=== PATIENT | female | born 1990 | race Caucasian/White ===

== ENCOUNTER → 2020-12-09 | Outpatient (CLI) | payer OTHER ==
--- NOTE | 2020-12-09 09:37 | ECGEPIP ---
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
== END ==
LOC: M EKG 08:43
PROVIDERS: ATTEND Obstetrics & Gynecology
DX: O24.012 Pre-existing type 1 diabetes mellitus, in pregnancy, second trimester (principal); Z3A.20 20 weeks gestation of pregnancy; Z79.4 Long term (current) use of insulin

== ENCOUNTER → 2021-02-28 | Outpatient (CLI) | payer OTHER ==
[2021-02-28 15:16] LABS: HEMOGLOBIN 11.9 g/dl (12.0-15.5); MEAN CORPUSCULAR HEMOGLOBIN 28.3 pg (27.0-33.0); MEAN CORPUSCULAR HGB CONC 33.1 g/dl (32.0-36.5); MEAN CORPUSCULAR VOLUME 85.7 fl (80.0-96.0); PLATELET COUNT, AUTOMATED 154 10^3/uL (150-450); WHITE BLOOD COUNT 7.5 10^3/uL (4.0-10.0)
[2021-02-28 15:17] LABS: APPEARANCE, URINE CLEAR (CLEAR); BACTERIA, URINE AUTO 1+ (NEGATIVE); BILIRUBIN, URINE AUTO NEGATIVE (NEGATIVE); BLOOD, URINE BLOOD NEGATIVE (NEGATIVE); COLOR, URINE YELLOW (YELLOW); GLUCOSE, URINE (UA) AUTO NEGATIVE (NEGATIVE); KETONE, URINE AUTO NEGATIVE (NEGATIVE); LEUKOCYTE ESTERASE, URINE AUTO NEGATIVE (NEGATIVE); MUCUS, URINE SMALL (NEGATIVE); NITRITE, URINE AUTO NEGATIVE (NEGATIVE); PROTEIN, URINE AUTO 1+ mg/dL (NEGATIVE); RBC, URINE AUTO 3 /HPF (0-3); SPECIFIC GRAVITY URINE AUTO 1.004 (1.002-1.035); SQUAMOUS EPITHELIAL CELL UR AU 1 /HPF (0-6); UROBILINOGEN, URINE AUTO 0.2 mg/dL (0.0-2.0); WBC, URINE AUTO 0 /HPF (0-3)
[2021-02-28 15:42] LABS: CREATININE,RANDOM URINE 27.5 MG/DL; TOTAL PROTEIN,RANDOM URINE 27.9 MG/DL (0.0-12.0)
[2021-02-28 15:47] LABS: ALBUMIN 2.5 GM/DL (3.2-5.2); ALT/SGPT 44 U/L (12-78); BILIRUBIN,TOTAL 0.5 MG/DL (0.2-1.0); BLOOD UREA NITROGEN 10 MG/DL (7-18); CALCIUM LEVEL 8.9 MG/DL (8.5-10.1); CARBON DIOXIDE LEVEL 25 MEQ/L (21-32); CHLORIDE LEVEL 103 MEQ/L (98-107); CREATININE FOR GFR 0.76 MG/DL (0.55-1.30); GLOMERULAR FILTRATION RATE > 60.0 (>60); GLUCOSE, FASTING 82 MG/DL (70-100); SODIUM LEVEL 136 MEQ/L (136-145); TOTAL PROTEIN 6.7 GM/DL (6.4-8.2)
== END ==
LOC: EDBD 14:19 → M LAB 14:19
PROVIDERS: ATTEND Obstetrics & Gynecology
DX: O13.3 Gestational [pregnancy-induced] hypertension without significant proteinuria, third trimester (principal)

== ENCOUNTER → 2021-03-02 | Outpatient (REF) | payer OTHER ==
[~2021-03-02] MED LIST: ACET-907 PO; INSULIN PUMP; PREN200C PO
[2021-03-02 12:59] LABS: URINE TOTAL PROTEIN 46.5 MG/DL (0-12)
== END ==
LOC: M LAB REF 10:45
PROVIDERS: ATTEND Obstetrics & Gynecology
DX: O13.3 Gestational [pregnancy-induced] hypertension without significant proteinuria, third trimester (principal)

== ENCOUNTER 2021-03-03 16:07 | Outpatient (CLI) | payer OTHER ==
[~2021-03-03] VITALS: Ht 175.3 cm; Wt 93.9 kg
[~2021-03-03 16:07] MED LIST changes: -ACET-907 PO
[2021-03-03] MEDS ORDERED: ACET-907 PO (16:30)
--- NOTE | 2021-03-03 16:31 | IPNPDOC ---
Obstetrical Progress Note Date of Service Mar 03, 2021 Subjective Ms. Villegas is a 30yo at 35+3 presenting from the clinic for elevated trend in BP in the setting of currently diagnosed pre-eclampsia without severe features. Notably her is also c/b DM1, PTD, and history of CD with CD planned at 36wk given her history of PTD with Dr. Humphries. She is normally in systolic 140s but now is in systolic 150s today so she was sent for extended BP monitoring and pre-eclampsia labs. At this time she denied n/v/d, cp, sob, calderon, visual changes, abd pain, f/c, vaginal bleeding, dc, urinary sx. She denied VB, LOF, decreased FM, or painful contractions. Assessment Variability: Moderate Accelerations: Positive Heart Rate Tracing: Category I Tocometer Contractions: Yes Frequency: irregular Assessment and Plan Additional Comments Ms. Villegas is a 30yo at 35+3 presenting from the clinic for elevated trend in BP in the setting of currently diagnosed pre-eclampsia without severe features. Notably her is also c/b DM1, PTD, and history of CD with CD planned at 36wk given her history of PTD with Dr. Humphries. She is normally in systolic 140s but was is in systolic 150s today in clinic so she was sent for extended BP monitoring and pre-eclampsia labs. In triage she has been normotensive to mild range. She denied si/sx of pre- eclampsia at this time. CAT I NST. Will continue with serial NSTs/labs per plan with Dr. Humphries. Started BMTZ administration today for her anticipated delivery date. Educated on return precautions for si/sx of pre-eclampsia. Educated on routine OB return precautions. Physical Examination General Exam: Positive: Alert Chest Exam: Positive: Clear to auscultation Heart Exam: Positive: Rate Normal, Normal S1 Abdomen Exam: Positive: Normal bowel sounds, Soft Skin Exam: Positive: Nl turgor and temperature Neuro Exam: Positive: Reflexes 2+ Psych Exam: Positive: Mental status NL JON NIELSON DO Mar 03, 2021 16:31
[2021-03-03 16:38] VITALS: BP 123/75
[2021-03-03 16:52] VITALS: BP 122/74
[2021-03-03] MEDS ORDERED: BETAMETHASONE SOLUSPAN 6MG/ML 5ML VIAL (J0702 PER 3MG) IM SCH (17:00)
[2021-03-03 17:09] LABS: HEMATOCRIT 33.9 % (36.0-47.0); HEMOGLOBIN 11.4 g/dl (12.0-15.5); MEAN CORPUSCULAR HEMOGLOBIN 28.6 pg (27.0-33.0); MEAN CORPUSCULAR HGB CONC 33.6 g/dl (32.0-36.5); MEAN CORPUSCULAR VOLUME 85.2 fl (80.0-96.0); PLATELET COUNT, AUTOMATED 153 10^3/uL (150-450); RED BLOOD COUNT 3.98 10^6/uL (4.00-5.40); WHITE BLOOD COUNT 7.2 10^3/uL (4.0-10.0)
[2021-03-03 17:31] LABS: ALT/SGPT 49 U/L (12-78); BILIRUBIN,TOTAL 0.4 MG/DL (0.2-1.0); CREATININE FOR GFR 0.74 MG/DL (0.55-1.30); GLOMERULAR FILTRATION RATE > 60.0 (>60); LDH LACTATE DEHYDROGENASE 180 U/L (84-246)
[2021-03-03 17:41] VITALS: BP 144/73
[2021-03-04] MEDS ORDERED: ASPI81CH33 PO (17:30)
[2021-03-04] MEDS ORDERED: NOVOINJ SC (17:30)
== END 2021-03-03 17:50 | disposition home or self-care (01) ==
LOC: M LDO 16:07
PROVIDERS: ATTEND Registered Nurse
DX: O14.03 Mild to moderate pre-eclampsia, third trimester (principal); Z3A.35 35 weeks gestation of pregnancy; O24.013 Pre-existing type 1 diabetes mellitus, in pregnancy, third trimester; O34.211 Maternal care for low transverse scar from previous cesarean delivery; Z87.51 Personal history of pre-term labor
CPT/HCPCS: 36415; 59025; 82247; 82565; 83615; 84450; 84460; 84550; 85027; 96372; G0378; G0463; J0702

== ENCOUNTER 2021-03-04 17:19 | Observation (INO) | payer OTHER ==
[~2021-03-04 17:19] MED LIST changes: +ACET-907 PO
[2021-03-04] MEDS ORDERED: ASPI81CH33 PO (17:30)
[2021-03-04] MEDS ORDERED: NOVOINJ SC (17:30)
[2021-03-04 17:32] VITALS: BP 145/72
[2021-03-04] MEDS ORDERED: BETAMETHASONE SOLUSPAN 6MG/ML 5ML VIAL (J0702 PER 3MG) IM ONE (18:05)
[2021-03-04 18:11] VITALS: BP 136/75
[2021-03-04 18:57] VITALS: BP 135/74
[2021-03-04 19:13] LABS: ALT/SGPT 68 U/L (12-78); BILIRUBIN,TOTAL 0.3 MG/DL (0.2-1.0); CREATININE FOR GFR 0.89 MG/DL (0.55-1.30); GLOMERULAR FILTRATION RATE > 60.0 (>60); LDH LACTATE DEHYDROGENASE 202 U/L (84-246); URIC ACID 4.9 MG/DL (2.6-6.0)
[2021-03-04 19:22] LABS: CREATININE,RANDOM URINE 50.3 MG/DL
--- NOTE | 2021-03-04 19:37 | IPNPDOC ---
Text Note Date of Service The patient was seen on 03/04/21. NOTE Item Value Date Time Urine Random Creatinine 50.3 MG/DL 03/04/211808 Urine Random Total Protein 51.0 MG/DL H 03/04/211808 Item Value Date Time Creatinine 0.89 MG/DL 03/04/211824 Glomerular Filtration Rate > 60.0 03/04/211824 Uric Acid 4.9 MG/DL 03/04/211824 Total Bilirubin 0.3 MG/DL 03/04/21 182 Aspartate Amino Transf (AST/SGOT) 56 U/L H 03/04/21 182 Alanine Aminotransferase (ALT/SGPT) 68 U/L 03/04/21 182 Lactate Dehydrogenase 202 U/L 03/04/21 182 Vital Signs Label Value Date Time Pulse 75 03/04/21 1857 Respiratory Rate 17 bpm 03/04/21 185 Blood Pressure Assessment 135/74 (94) 03/04/21 1857 Source Automatic Cuff (NIBP) Pulse 71 03/04/21 1811 Blood Pressure Assessment 136/75 (95) 03/04/21 1811 Source Automatic Cuff (NIBP) Pulse 76 03/04/21 1732 Blood Pressure Assessment 145/72 (96) 03/04/21 1732 Source Automatic Cuff (NIBP) PATIENT CAME FOR SECOND BETA SHE HAD MID RANGE BLOOD PRESSURES AND CONTRACTIONS SO PATIENT WAS ADMINISTERED FIRST DOSE BETA TODAY WITH SECOND DOSE PATIENT STILL HAD MID RANGE BLOOD PRESSURES NO HEADACHE NO VISUAL NO RUQ NO EDEMA REFLEXES NORMAL . NST REACTIVE . PLAN WAS TO DO PRE E PROFILE IF NORMAL CONTINUE WITH PLAN MONITORING 48 HOURS AND KEEP SCHEDULE FOR REPEAT CS . PATIENT EXPRESSED UNDERSTANDING OF PLAN. REVIEWED P/C RATIO IT IS .98 WHICH SUGGEST THAT PATIENT IS TRENDING TO PRE E . PLAN NOW IS MONITOR X 12 HOURS BY THAT TIME PATIENT WILL BE STEROID COMPLETE . THEN OPTION OF REPEAT C/S MAY BE CONSIDERED. PATIENT EXPRESSED UNDERSTANDING 20 MINUTE DISCUSSION VS,Juanbone, I+O VS, Fishbone, I+O Vital Signs Date Time Temp Pulse Resp B/P (MAP) Pulse Ox O2 Delivery O2 Flow Rate FiO2 03/04/21 18:57 75 17 135/74 (94) Yoshi Casey MD Mar 04, 2021 19:17
[2021-03-04 22:48] VITALS: BP 113/56
[2021-03-05 02:54] VITALS: BP 116/57
[2021-03-05 06:10] LABS: HEMATOCRIT 32.4 % (36.0-47.0); HEMOGLOBIN 10.7 g/dl (12.0-15.5); MEAN CORPUSCULAR HEMOGLOBIN 28.4 pg (27.0-33.0); MEAN CORPUSCULAR VOLUME 85.9 fl (80.0-96.0); PLATELET COUNT, AUTOMATED 147 10^3/uL (150-450); RED BLOOD COUNT 3.77 10^6/uL (4.00-5.40); WHITE BLOOD COUNT 9.9 10^3/uL (4.0-10.0)
[2021-03-05 06:24] VITALS: BP 141/68
--- NOTE | 2021-03-05 08:25 | IPNPDOC ---
Text Note Date of Service The patient was seen on 03/05/21. NOTE Vital Signs Label Value Date Time Patient Temperature 97.1 degrees F 03/05/21 0627 Temperature Source Temporal 03/05/21 0627 Blood Pressure Assessment 141/68 (92) 03/05/21 0624 Source Automatic Cuff (NIBP) Patient Temperature 97.2 degrees F 03/05/21 0255 Temperature Source Temporal 03/05/21 0255 Blood Pressure Assessment 116/57 (76) 03/05/21 0254 Source Automatic Cuff (NIBP) Patient Temperature 97.4 degrees F 03/04/21 2255 Temperature Source Temporal 03/04/21 2255 Blood Pressure Assessment 113/56 (75) 03/04/21 2248 Source Automatic Cuff (NIBP) Blood Pressure Assessment 135/74 (94) 03/04/21 1857 Source Automatic Cuff (NIBP) Blood Pressure Assessment 136/75 (95) 03/04/21 1811 Source Automatic Cuff (NIBP) Blood Pressure Assessment 145/72 (96) 03/04/21 1732 Source Automatic Cuff (NIBP) patient admitted for observation after second beta dose found to have mid range blood pressures. similar blood pressures that initiated first cs wth severe pre e and cs at 36 weeks second cs with similar history with pre e . did pre e profile p/c ratio .98 rest was negative . monitored blood pressure over night wer normal decision re earlier cs or monitor and keep cs date 06/11/2021 VS,Fishbone, I+O VS, Fishbone, I+O Laboratory Tests 03/04/21 18:25 03/05/21 05:38 Vital Signs Date Time Temp Pulse Resp B/P (MAP) Pulse Ox O2 Delivery O2 Flow Rate FiO2 03/05/21 06:27 97.1 17 03/05/21 06:24 60 141/68 (92) Yoshi Casey MD Mar 05, 2021 08:23
[2021-03-05 08:54] VITALS: BP 157/76
[2021-03-05 09:32] VITALS: BP 145/72
--- NOTE | 2021-03-05 10:31 | IPNPDOC ---
Text Note Date of Service The patient was seen on 03/05/21. NOTE Ms. Villegas is a 31 yo at 35+5 weeks gestation today who was admitted for observation overnight after her 2nd dose of BTMZ for elevated blood pressure. She is Type 1 DM on an insulin pump. She has known pre eclampsia this , diagnosed earlier this week with a 24 hour urine protein level of >1000mg. Her first two pregnancies resulted in delivery at ~36 weeks for pre eclampsia with severe features. Because of this, she completed her BTMZ course yesterday evening. Ms. Villegas reports feeling well today and has no complaints. She denies any headaches, RUQ pain, visual changes, or SOB. She also denies any bleeding, leakage of fluid, or contractions. She endorses movement. Vitals - BP normal to mildly elevated. No severe range pressures. Afebrile, non tachycardic General - AAOX3, sitting up in bed, pleasant and conversant, NAD Abdomen - Gravid uterus, no fundal tenderness Extremities - Mild edema FHR tracing this AM - Cat I with moderate variability, +accels, no decels. Sporadic uterine irritability on toco. Labs: Plts - 147 Cr - 0.89 AST/ALT - 56/68 Ms. Villegas is stable at this time. She is scheduled for RLTCS on 11Mar2021 at 36+4 weeks gestation. However, it may be necessary to proceed with delivery sooner. She currently does not meet criteria for pre eclampsia with severe features, however, her labs are trending in that direction. Plan will be for her to return to L&D tomorrow AM (06Mar2021) for repeat CBC, CMP, NST, and blood pressure monitoring. She is currently BTMZ complete. If she has severely elevated BP tomorrow, worsening lab work, symptoms of pre e, or a non reassuring status, then we will proceed with RLTCS tomorrow. Tri feels comfortable with this plan. She will not eat after midnight tonight. She lives <5 minutes away from the hospital. She understands to return to care sooner than tomorrow AM if she develops headaches, RUQ pain, visual changes, SOB, or any other concerns. All patient questions answered. 30 minutes of patient care Rashel Rose, I+O VS, Fishbone, I+O Laboratory Tests 03/04/21 18:25 03/05/21 05:38 Vital Signs Date Time Temp Pulse Resp B/P (MAP) Pulse Ox O2 Delivery O2 Flow Rate FiO2 03/05/21 09:32 65 145/72 (96) 03/05/21 08:54 97.4 18 100 Room Air KEE SHEPPARD DO Mar 05, 2021 10:31
== END 2021-03-05 10:40 | disposition home or self-care (01) ==
LOC: M LDO 17:19 → M LDI 19:37
PROVIDERS: ADMIT Obstetrics & Gynecology; ATTEND Obstetrics & Gynecology
DX: O14.03 Mild to moderate pre-eclampsia, third trimester (principal); O34.211 Maternal care for low transverse scar from previous cesarean delivery; O24.013 Pre-existing type 1 diabetes mellitus, in pregnancy, third trimester; Z3A.35 35 weeks gestation of pregnancy; Z87.59 Personal history of other complications of pregnancy, childbirth and the puerperium
CPT/HCPCS: 36415; 59025; 82247; 82565; 82570; 83615; 84156; 84450; 84460; 84550; 85027; 96372; J0702

== ENCOUNTER 2021-03-06 09:19 | Inpatient (IN) | payer OTHER ==
[~2021-03-06] VITALS: Ht 175.3 cm; Wt 95.3 kg
[2021-03-06] VITALS (34 sets, daily range): BP systolic 97–193; BP diastolic 49–97
[~2021-03-06 09:19] MED LIST changes: +ASPI81CH33 PO; +NOVOINJ SC
[2021-03-06 10:14] LABS: MEAN CORPUSCULAR HEMOGLOBIN 28.4 pg (27.0-33.0); MEAN CORPUSCULAR HGB CONC 33.3 g/dl (32.0-36.5); MEAN CORPUSCULAR VOLUME 85.2 fl (80.0-96.0); PLATELET COUNT, AUTOMATED 135 10^3/uL (150-450); RED BLOOD COUNT 3.52 10^6/uL (4.00-5.40); WHITE BLOOD COUNT 9.6 10^3/uL (4.0-10.0)
[2021-03-06] MEDS ORDERED: OXYTOCIN DRIP 30 UNITS in IV 1 EA IV PRN (10:35)
[2021-03-06] MEDS ORDERED: LR 1,000 ML IV SCH ×2 (10:35→14:00)
[2021-03-06] MEDS ORDERED: AZITHROMYCIN INJ 500 MG, VIAL MATE ADAPTER 1 EACH in NS 250 ML IV ONE (11:00)
[2021-03-06] MEDS ORDERED: BICITRA 30ML SOLN UDC PO ONE (11:00)
[2021-03-06] MEDS ORDERED: ceFAZolin SOD 2 GM in IV 1 EA IV ONE (11:00)
[2021-03-06] MEDS ORDERED: MORPHINE PRES-FREE INJ 10 MG/10 ML VIAL (J2274) As Ordered ONE (11:02)
[2021-03-06] MEDS ORDERED: OXYTOCIN INJ 10 UNITS/ML VIAL (J2590) As Ordered ONE (11:03)
[2021-03-06] MEDS ORDERED: ONDANSETRON 4MG/2ML VIAL As Ordered ONE (11:03)
[2021-03-06] MEDS ORDERED: KETOROLAC 60MG 2ML VIAL As Ordered ONE (11:03)
[2021-03-06] MEDS ORDERED: dexameTHASONE 4 MG/ML 1ML VIAL (J1100 PER 1MG) As Ordered ONE (11:03)
[2021-03-06] MEDS ORDERED: PHENYLephrine 500MCG 5ML (100MCG/ML) SYRINGE As Ordered ONE (11:03)
[2021-03-06] MEDS ORDERED: ePHEDrine SULFATE 25 MG/5 ML(5MG/ML) SYRINGE As Ordered ONE (11:03)
[2021-03-06] MEDS ORDERED: OXYTOCIN 30 UNITS IN 0.9% NaCl 500ML IV BAG (J2590) As Ordered ONE ×2 (11:04→13:27)
--- NOTE | 2021-03-06 11:05 | HPEPDOC ---
Obstetrical History & Physical General Date of Admission Mar 06, 2021 at 10:37 History of Present Illness 31 yo at 35+6 weeks gestation by LMP of 28Jun2020 c/w 12+1 week US presented to L&D for blood work, NST, and blood pressure monitoring. Tri has known pre eclampsia and type 1 DM controlled with an insulin pump. She was originally scheduled for RLTCS on 11Mar2021 but her labs have been trending in the wrong direction and her BP has been increasing. She delivered her first two children at 36 weeks secondary to severe pre eclampsia. Today Tri reports feeling well. She denies any headaches, RUQ pain, visual changes, or SOB. She also denies any contractions, vaginal bleeding, or leakage of fluid. She endorses movement. 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 Past Medical History Medical History Type 1 DM --> controlled with insulin pump Vit D deficiency Surgical History: section ( section X2) Family History Significant Family History: No pertinent family hx Social History Marital Status: Family situation: Spouse/partner home Psychosocial History: No pertinent psych hx * Smoker: non-smoker Alcohol: Denies Drugs: denies Imunizations Tdap status: current Influenza Status: needs Allergies Coded Allergies: No Known Allergies (Unverified , 03/03/21) Medications Scheduled Aspirin (Aspirin) 81 Mg Tab.chew, 1 TAB PO DAILY for pain Docosahexanoic Acid ( Dha) 200 Mg Capsule, 200 MG PO DAILY [Insulin Pump] , DAILY Miscellaneous Medications Insulin Aspart (Novolog) 100 Unit/1 Ml Cartridge, 1 UNITS SC Physical Examination Physical Examination GENERAL: AAOX3, pleasant and conversant ABDOMEN: Gravid and non-tender to touch. FETUS: Is vertex (VTX) by Kenneth's EXTREMITIES: 2+ pitting edema in lower extremities Vital Signs/I&O Vital Signs Date Time Temp Pulse Resp B/P (MAP) Pulse Ox O2 Delivery O2 Flow Rate FiO2 03/06/21 10:32 59 16 135/68 (90) 03/06/21 09:30 98.1 98 Room Air Laboratory Data 24H LABS Laboratory Tests 2 03/06/21 09:58: Nucleated Red Blood Cells % (auto) 0.0 CBC/BMP Laboratory Tests 03/06/21 09:58 Urine Culture: No Growth Pertinent Laboratoy Data Blood Type: AB+ RBC Antibody Screen: Negative HIV: Negative Hepatitis B: Negative Hepatitis C: Unknown Rapid Plasma Reagin: Nonreactive Rubella: Immune Varicella: Immune Chlamydia/Gonorrhea: Negative Group B Streptococcus: Negative Quad Screen Test: Unknown Cystic Fibrosis: Negative Glucose Tolerance Test: 0 (Not done. Known insulin dependent diabetic) Anatomy Ultrasound Ultrasound Date: Dec 01, 2020 Placenta Location: Anterior Normal Anatomy: Yes Placenta Previa: No Other Ultrasounds growth scan on 22Feb2021 ---> EFW 85th percentile, AC 94th percentile, CELIO 20.55 Steroid Therapy Steroid Therapy: Yes Date #1: Mar 03, 2021 (Pre eclampsia) Date #2: Mar 04, 2021 (Pre eclampsia) Reason Pre eclampsia. Anticipation of early delivery. Assessment Heart Rate (FHR): 130 Variability: Moderate Accelerations: Positive Decelerations: None Tocometer Contractions: Yes Frequency: irregular Assessment/Plan Assessment 31 yo at 35+6 weeks presents to L&D today for monitoring and was noted to have pre eclampsia with severe features. Plan Tri is now meeting criteria for pre eclampsia with severe features based on severely elevated blood pressures. She is BTMZ complete as of 04Mar2021. She strongly desires RLTCS with BTL for this delivery. She and her are 100% committed to sterilization. We discussed all risks of RLTCS with BTL and Tri desires to proceed. All questions answered. Proceed to OR when team assembled. KEE Mike DO Mar 06, 2021 11:05
[2021-03-06] MEDS ORDERED: diphenhydrAMINE 50MG/ML VIAL (J1200) IV PRN (11:43)
[2021-03-06] MEDS ORDERED: METOCLOPRAMIDE INJ 10MG/2ML VIAL (J2765 PER 1) IV PRN (11:43)
[2021-03-06] MEDS ORDERED: NALBUPHINE HCL 10 MG/ML AMP (J2300) IV PRN ×2 (11:43→14:00)
[2021-03-06] MEDS ORDERED: ONDANSETRON 4MG/2ML VIAL IV PRN ×3 (11:43→14:00)
[2021-03-06] MEDS ORDERED: NALOXONE INJ 0.4MG/1ML VIAL (J2310 PER 1MG) IV PRN ×2 (11:43)
[2021-03-06 12:35] LABS: CORD GAS ABE V 0.4; CORD GAS HCO3 V 25.2 MEQ/L; CORD GAS O2 SAT V 76.6 %; CORD GAS PCO2 V 41.3 mmHg; CORD GAS PH V 7.403 UNITS; CORD GAS PO2 V 31.7 mmHg; CORD GAS SBC V 24.2 MEQ/L; CORD GAS TCO2 V 26.4 MEQ/L
[2021-03-06 12:36] LABS: CORD GAS ABE A -1.1; CORD GAS HCO3 A 26.4 MEQ/L; CORD GAS O2 SAT A 36.1 %; CORD GAS PCO2 A 54.5 mmHg; CORD GAS PH A 7.303 UNITS; CORD GAS PO2 A 17.8 mmHg; CORD GAS SBC A 21.8 MEQ/L; CORD GAS TCO2 A 28.1 MEQ/L
[2021-03-06] MEDS ORDERED: MAG Sulf (L&D) 4 GM/100 ML 4 GM in IV 1 EA IV ONE (13:15)
[2021-03-06] MEDS ORDERED: MEASLES,MUMPS,RUBELLA VACCINE INJ (MMR-II) (90707) SC SCH (13:20)
[2021-03-06] MEDS ORDERED: SIMETHICONE 80MG CHEW TAB PO PRN (13:20)
[2021-03-06] MEDS ORDERED: oxyCODONE 5MG TAB PO PRN (13:20)
[2021-03-06] MEDS ORDERED: RHOGAM 300 MCG (1500 IU) INJ (J2790) IM SCH (13:20)
[2021-03-06] MEDS ORDERED: OXYTOCIN DRIP 30 UNITS in IV 1 EA IV SCH (13:20)
[2021-03-06 13:29] LABS: ALBUMIN 2.2 GM/DL (3.2-5.2); ALT/SGPT 112 U/L (12-78); BILIRUBIN,TOTAL 0.5 MG/DL (0.2-1.0); BLOOD UREA NITROGEN 12 MG/DL (7-18); CALCIUM LEVEL 8.4 MG/DL (8.5-10.1); CARBON DIOXIDE LEVEL 24 MEQ/L (21-32); CHLORIDE LEVEL 109 MEQ/L (98-107); GLOMERULAR FILTRATION RATE > 60.0 (>60); GLUCOSE, FASTING 88 MG/DL (70-100); LDH LACTATE DEHYDROGENASE 203 U/L (84-246); POTASSIUM SERUM 4.1 MEQ/L (3.5-5.1); SODIUM LEVEL 139 MEQ/L (136-145); TOTAL PROTEIN 5.9 GM/DL (6.4-8.2)
[2021-03-06] MEDS ORDERED: HumaLOG INSULIN (NovoLOG) PER UNIT SC ONE (14:00)
[2021-03-06] MEDS ORDERED: fentaNYL 100 MCG/2 ML INJECTION (J3010) IV PRN (14:00)
[2021-03-06] MEDS ORDERED: ENTER DRUG NAME HERE (PATIENT'S OWN MED) IV SCH (14:10)
[2021-03-06] MEDS: MAG Sulf (OBGYN) 20GM/500ML 20,000 MG in IV 1 EA IV SCH (15:17)
--- NOTE | 2021-03-06 15:17 | RO ---
OPERATIVE NOTE DATE OF OPERATION: 03/06/2021 PREOPERATIVE DIAGNOSIS: 1. Preeclampsia with severe features. 2. History of section x2. 3. Type 1 diabetes mellitus. 4. Satisfied parity. POSTOPERATIVE DIAGNOSIS: 1. Preeclampsia with severe features. 2. History of section x2. 3. Type 1 diabetes mellitus. 4. Satisfied parity. PROCEDURE: Repeat low transverse section and bilateral tubal ligation. SURGEON: Jesus Humphries DO EXHIBIT TECHNICIAN: Candida Brady MD ANESTHESIA: Spinal. IV FLUIDS: 1600 mL LR. URINE OUTPUT: 200 mL via Metz catheter. ESTIMATED BLOOD LOSS: 600 mL ANTIBIOTICS: 2 gm of Ancef and 500 mg of azithromycin. OPERATIVE FINDINGS: A viable, female delivered in cephalic presentation. Meconium stained amniotic fluid. Normal ovaries, normal fallopian tubes bilaterally. Normal appearing placenta. weight was 3440 gm or 7 lb, 9 oz. Apgars were 9 and 9. COMPLICATIONS: None. INDICATIONS FOR PROCEDURE: Ms. Tri Villegas is a 32-year-old, G3, P0-2-0-2, who presented at 35 and 6 weeks gestation with known preeclampsia. She presented for blood pressure monitoring and repeat blood work. She was noted to have severely elevated blood pressures and twice the upper limit of normal liver enzymes. She thus ruled in for preeclampsia with severe features. She was steroid complete as of March 04, 2021. She was recommended for delivery. She strongly desired tubal sterilization at the time of repeat . She was then taken to the operating room. DETAILED PROCEDURE DESCRIPTION: The risks, benefits, indications, and alternatives of the procedure were reviewed with the patient and informed consent was obtained. The patient was taken to the operating room where spinal anesthesia was obtained and found to be adequate. She was then prepped and draped in the usual sterile fashion in the dorsal supine position with a leftward tilt. A Pfannenstiel skin incision was then made with a scalpel and carried through to the underlying layer of fascia. The fascia was incised in the midline and the incision was extended laterally with Nathan scissors. The superior aspect of the fascial incision was grasped with Garland clamps, elevated, and the underlying rectus muscles were dissected off bluntly and with a scalpel. Attention was then turned to the inferior aspect of this incision which in a similar fashion was grasped, tented up with Garland clamps, and the rectus muscles were dissected off via blunt dissection and with Nathan scissors. There was significant scarring and adhesions in this area that added 15 minutes of operating time. The rectus muscles were then at the midline. The peritoneum was identified, tented up, and entered digitally. The peritoneal incision was then extended horizontally and superiorly with good visualization of the bladder. A Mobius self-containing retractor was then introduced into the abdomen as a means for exposure. The vesicouterine peritoneum was identified and it was nicked with the scalpel. A bladder flap was then created digitally. Next, the lower uterine segment was incised in a transverse fashion with the scalpel. The amniotic sac was artificially ruptured productive of meconium stained fluid. The uterine incision was then extended manually in a superolateral fashion. The infant was found to be in cephalic presentation. The baby was then delivered without difficulty through the hysterotomy. The cord was then doubly clamped and cut. The was handed off to the awaiting pediatricians. Cord blood gases were drawn. The placenta was then removed spontaneously with gentle traction on the umbilical cord. The uterus was then cleared of all clots and debris. The uterine incision was then repaired with 0 Monocryl suture in a running locked fashion. Excellent hemostasis was noted. Irrigation was then performed to good effect. The patient's left fallopian tube was then grasped with a Em clamp and followed out to its fimbriated end. The mesosalpinx was incised parallel to the fallopian tube in an avascular plane using Bovie cautery. Two free ties of plain gut were passed through the defect and placed around the fallopian tube in its proximal and distal segments and then tied. The tubal segment between the two sutures was then excised using Metzenbaum scissors. Approximately 3 cm of tube was excised and sent to pathology. Excellent hemostasis was noted at the tubal lumen. An identical procedure was then performed on the patient's right fallopian tube with an additional 3 cm excised portion sent to pathology. Excellent hemostasis was noted at the tube. The hysterotomy was again reinspected. There was some oozing bleeding that was controlled with Bovie electrocautery. Juhi was then applied for additional hemostasis. Excellent hemostasis was achieved. The mobius self containing retractor was then removed from the abdomen. The peritoneum was then closed with 3-0 Vicryl suture in a running fashion. The patient's rectus muscles were then reapproximated using 3-0 Vicryl suture. The fascia was then closed with 0 Vicryl suture in a running fashion. The subcutaneous fat was then closed with 3-0 Vicryl suture in a running fashion. The skin was then closed with 4-0 Monocryl suture in a subcuticular fashion. The incision was then dressed and a pressure dressing was applied. At the completion of the case, the sponge, instrument, and needle counts were correct x3. A bimanual exam was then performed which revealed good uterine tone and minimal vaginal bleeding. The patient tolerated the procedure well. The patient was taken to the recovery room in stable condition. MELCHOR
[2021-03-06] MEDS: NIFEdipine 30 MG XL TAB PO SCH (15:43)
[2021-03-06] MEDS: LR 1,000 ML IV SCH (16:15)
[2021-03-06] MEDS ORDERED: hydrALAZINE 20MG/ML 1ML VIAL (J0360 PER 20MG) IV STA (16:26)
[2021-03-06] MEDS: KETOROLAC 30 MG/ML 1ML VIAL IV SCH ×2 (17:03→23:03)
[2021-03-06] MEDS: LABETALOL 100MG TAB PO SCH (18:22)
[2021-03-07] VITALS (22 sets, daily range): BP systolic 98–150; BP diastolic 51–81
[2021-03-07] MEDS: LR 1,000 ML IV SCH ×2 (01:19→10:57)
[2021-03-07] MEDS: KETOROLAC 30 MG/ML 1ML VIAL IV SCH (04:56)
[2021-03-07 06:39] LABS: HEMATOCRIT 30.8 % (36.0-47.0); HEMOGLOBIN 10.3 g/dl (12.0-15.5); MEAN CORPUSCULAR HEMOGLOBIN 28.8 pg (27.0-33.0); MEAN CORPUSCULAR HGB CONC 33.4 g/dl (32.0-36.5); PLATELET COUNT, AUTOMATED 175 10^3/uL (150-450); RED BLOOD COUNT 3.58 10^6/uL (4.00-5.40); WHITE BLOOD COUNT 13.2 10^3/uL (4.0-10.0)
[2021-03-07 07:20] LABS: ALBUMIN 1.9 GM/DL (3.2-5.2); ALT/SGPT 118 U/L (12-78); BILIRUBIN,TOTAL 0.5 MG/DL (0.2-1.0); BLOOD UREA NITROGEN 9 MG/DL (7-18); CALCIUM LEVEL 7.8 MG/DL (8.5-10.1); CARBON DIOXIDE LEVEL 28 MEQ/L (21-32); CHLORIDE LEVEL 103 MEQ/L (98-107); CREATININE FOR GFR 0.85 MG/DL (0.55-1.30); GLOMERULAR FILTRATION RATE > 60.0 (>60); GLUCOSE, FASTING 69 MG/DL (70-100); MAGNESIUM LEVEL 4.6 MG/DL (1.8-2.4); POTASSIUM SERUM 4.1 MEQ/L (3.5-5.1); SODIUM LEVEL 135 MEQ/L (136-145); TOTAL PROTEIN 5.4 GM/DL (6.4-8.2)
--- NOTE | 2021-03-07 08:19 | IPNPDOC ---
Progress Note Date of Service: Mar 07, 2021 Progress Note Ms. Villegas is POD#1 s/p uncomplicated RLTCS with BTL yesterday afternoon for pre eclampsia with severe features. She is currently on a mag drip. Tri reports feeling well. She denies any headaches, RUQ pain, visual changes, or SOB. Pain is well controlled. She is tolerating clear liquids without issues. Vitals - VSS, afebrile, normal to mildly elevated BPs, non tachycardic General - sitting up in bed, AAOX3, pleasant and conversant, NAD Abdomen - Fundus firm at U-1. No fundal tenderness. Bandage removed over incision. Steri strips in place. Incision clean/dry/intact. Minimal tenderness to palpation. Extremities - 1+ edema UO - excellent Labs: Pre op CBC 9.6>10.0/30.0<135 --> post op this AM 13.2>10.3/30.8<175 AST/ALT - 81/112 ---> 99/118 BMP - 139/4.1--109/24--12/0.8<88 Tri is doing well. Continue mag for 24 hours . Continue nifedipine and labetalol for BP control. Continue routine post op care. Yandel VS, I&O, 24H, Rashel Vital Signs/I&O Vital Signs Date Time Temp Pulse Resp B/P (MAP) Pulse Ox O2 Delivery O2 Flow Rate FiO2 03/07/21 07:46 97.6 59 16 146/75 (98) 03/06/21 18:44 97 Room Air I&O- Last 24 Hours up to 6 AM 03/07/21 06:00 Intake Total 4066.0 ml Output Total 2600 ml Balance 1466.0 ml Laboratory Data 24H LABS Laboratory Tests 2 03/06/21 09:58: Nucleated Red Blood Cells % (auto) 0.0, Anion Gap 6L, Glomerular Filtration Rate > 60.0, Calcium Level 8.4L, Total Bilirubin 0.5#, Aspartate Amino Transf (AST/SGOT) 81H, Alanine Aminotransferase (ALT/SGPT) 112H, Alkaline Phosphatase 146H, Lactate Dehydrogenase 203, Total Protein 5.9L, Albumin 2.2L, Albumin/Globulin Ratio 0.6L 03/06/21 12:29: Cord Arterial Blood pH 7.303, Cord Arterial Blood PCO2 54.5, Cord Arterial Blood PO2 17.8, Cord Arterial Blood HCO3 26.4, Cord Arterial Blood Total CO2 28.1, Cord Arterial Blood Base Excess -1.1, Cord Arterial Base Excess (Standard 21.8, Cord Arterial Bld Oxygen Saturation 36.1, Cord Venous Blood pH 7.403, Cord Venous Blood PCO2 41.3, Cord Venous Blood PO2 31.7, Cord Venous Blood HCO3 25.2, Cord Venous Blood Total CO2 26.4, Cord Venous Base Excess (Actual) 0.4, Cord Venous Base Excess (Standard) 24.2, Cord Venous Blood Oxygen Saturation 76.6 03/06/21 13:01: Serology Scanned Report Hepatitis B Testing 03/07/21 06:27: Nucleated Red Blood Cells % (auto) 0.0, Anion Gap 4L, Glomerular Filtration Rate > 60.0, Calcium Level 7.8L, Total Bilirubin 0.5, Aspartate Amino Transf (AST/SGO T) 99H, Alanine Aminotransferase (ALT/SGPT) 118H, Alkaline Phosphatase 126H, Total Protein 5.4L, Albumin 1.9L, Albumin/Globulin Ratio 0.5L, Magnesium Level 4.6*H CBC/BMP Laboratory Tests 03/06/21 09:58 03/07/21 06:27 KEE SHEPPARD DO Mar 07, 2021 08:19
[2021-03-07] MEDS: NIFEdipine 30 MG XL TAB PO SCH (10:08)
[2021-03-07] MEDS: PRENATAL VITAMINS CHEWABLE TABLET PO SCH (10:09)
[2021-03-07] MEDS: LABETALOL 100MG TAB PO SCH ×2 (10:09→22:09)
[2021-03-07] MEDS ORDERED: PERCOCET 5MG/325MG TAB As Ordered ONE (10:15)
[2021-03-07] MEDS ORDERED: oxyCODONE 5MG TAB As Ordered ONE (10:21)
[2021-03-07] MEDS: oxyCODONE 5MG TAB PO PRN ×2 (10:23→17:36)
[2021-03-07] MEDS: MAG Sulf (OBGYN) 20GM/500ML 20,000 MG in IV 1 EA IV SCH (10:28)
[2021-03-08 02:00] VITALS: BP 138/80
--- NOTE | 2021-03-08 04:29 | IPNPDOC ---
Progress Note Date of Service: Mar 08, 2021 Day#: 2 Progress Note Ms. Villegas is POD#2 s/p uncomplicated RLTCS with BTL yesterday afternoon for pre eclampsia with severe features. Her magnesium was discontinued after 24h yesterday afternoon. Tri reports feeling well. She denies any headaches, RUQ pain, visual changes, or SOB. Pain is well controlled. She is ambulating, voiding, and tolerating solids without issues. She is passing flatus. Vitals - VSS, afebrile, normal to mildly elevated BPs, non tachycardic General - sitting up in bed, AAOX3, pleasant and conversant, NAD Abdomen - Fundus firm at U-1. No fundal tenderness. Steri strips in place. Incision clean/dry/intact. Minimal tenderness to palpation. Extremities - 1+ edema UO - excellent Labs: Pre op CBC 9.6>10.0/30.0<135 --> post op this AM 13.2>10.3/30.8<175 AST/ALT - 81/112 ---> 99/118 BMP - 139/4.1--109/24--12/0.8<88 Ms. Villegas is a 31yo POD2 after an uncomplicated RCD/BTL at 35wks for pre- eclampsia with severe features and is s/p 24h Mg yesterday afternoon. She notably has associated transaminitis which has been stable over the past 48h. She is currently on labetalol 100mg BID and nifedipine XR 30mg QD for blood pressure control. She denied si/sx of pre-eclampsia. She is normotensive to mild range. - will continue BP monitoring for minimum 24h off magnesium with plan for 24h and 7d BP check after discharge - nifedipine and labetalol PO for BP control, IV antihypertensives as indicated - will follow up on AM repeat pre-eclampsia labs - ibuprofen and tylenol with oxycodone for breakthrough post-op pain control - continue UOP/VS per unit protocol - regular diet - ambulation encouraged Tracey VS, I&O, 24H, Fishbone Vital Signs/I&O Vital Signs Date Time Temp Pulse Resp B/P (MAP) Pulse Ox O2 Delivery O2 Flow Rate FiO2 03/08/21 02:51 16 03/08/21 02:00 97.7 86 138/80 (99) 98 Room Air I&O- Last 24 Hours up to 6 AM 03/08/21 06:00 Intake Total 2825 ml Output Total 2100 ml Balance 725 ml Laboratory Data 24H LABS Laboratory Tests 2 03/07/21 06:27: Nucleated Red Blood Cells % (auto) 0.0, Anion Gap 4L, Glomerular Filtration Rate > 60.0, Calcium Level 7.8L, Magnesium Level 4.6*H, Total Bilirubin 0.5, Aspartate Amino Transf (AST/SGOT) 99H, Alanine Aminotransferase (ALT/SGPT) 118H, Alkaline Phosphatase 126H, Total Protein 5.4L, Albumin 1.9L, Albumin/Globulin Ratio 0.5L CBC/BMP Laboratory Tests 03/07/21 06:27 JON NIELSON DO Mar 08, 2021 04:29
[2021-03-08 05:58] VITALS: BP 130/66
[2021-03-08 08:23] LABS: HEMATOCRIT 32.5 % (36.0-47.0); HEMOGLOBIN 10.6 g/dl (12.0-15.5); MEAN CORPUSCULAR HEMOGLOBIN 28.5 pg (27.0-33.0); MEAN CORPUSCULAR HGB CONC 32.6 g/dl (32.0-36.5); MEAN CORPUSCULAR VOLUME 87.4 fl (80.0-96.0); PLATELET COUNT, AUTOMATED 209 10^3/uL (150-450); RED BLOOD COUNT 3.72 10^6/uL (4.00-5.40); WHITE BLOOD COUNT 14.3 10^3/uL (4.0-10.0)
[2021-03-08 08:43] LABS: ALBUMIN 2.2 GM/DL (3.2-5.2); ALT/SGPT 132 U/L (12-78); BILIRUBIN,TOTAL 0.3 MG/DL (0.2-1.0); BLOOD UREA NITROGEN 11 MG/DL (7-18); CALCIUM LEVEL 8.4 MG/DL (8.5-10.1); CARBON DIOXIDE LEVEL 28 MEQ/L (21-32); CHLORIDE LEVEL 105 MEQ/L (98-107); CREATININE FOR GFR 0.79 MG/DL (0.55-1.30); GLOMERULAR FILTRATION RATE > 60.0 (>60); GLUCOSE, FASTING 62 MG/DL (70-100); POTASSIUM SERUM 4.3 MEQ/L (3.5-5.1); SODIUM LEVEL 140 MEQ/L (136-145); TOTAL PROTEIN 6.1 GM/DL (6.4-8.2)
[2021-03-08] MEDS: NIFEdipine 30 MG XL TAB PO SCH (09:21)
[2021-03-08] MEDS: LABETALOL 100MG TAB PO SCH ×2 (09:21→21:02)
[2021-03-08] MEDS: PRENATAL VITAMINS CHEWABLE TABLET PO SCH (09:21)
[2021-03-08 10:00] VITALS: BP 139/64
[2021-03-08 14:00] VITALS: BP_SYST 141; BP_SYST 158; BP_DIAS 69; BP_DIAS 76
[2021-03-08 18:00] VITALS: BP 141/80
[2021-03-08] MEDS: oxyCODONE 5MG TAB PO PRN (21:07)
[2021-03-08 21:48] VITALS: BP 134/69
[2021-03-09] MEDS ORDERED: MI-A80CH PO (06:29)
--- NOTE | 2021-03-09 06:39 | OBDS ---
[facility] Obstetrical Discharge Sum. Obstetrical Discharge Summary Date: Mar 09, 2021 Time: 08:00 : 3 Term: 0 Pre-term: 3 Abortions: 0 Livin VDRL: Non-Reactive Rh: Positive Rubella: Immune Sex: Female Weight: grams (3440) Anesthesia: Regional Anesthesia A/P, Post Course List any complications Admission diagnosis: 1) Pre-term Intrauterine ; 2) Type I Diabetes Mellitus on Insulin Pump; 3) Pre-Eclampsia with severe features; 4) Satisfied Parity. Discharge diagnosis: 1) Same As Above; 2) Delivered via RLTCS with BTL. Condition at Discharge: Stable. Discharge Instructions: Home. Activity: As Tolerated Diet: Regular, as tolerated Medications: Nifedipine, Labetalol, Motrin, Tylenol, Oxycodone Follow-up: Blood Pressure Evaluation (Sunday, 11 March 2021 & , 17 March 2021); Incision Evaluation in 2-weeks; Routine Evaluation in 6-weeks. Other: N/A Ms. Villegas is POD#3 s/p uncomplicated RLTCS with BTL for pre eclampsia with severe features. Her magnesium was discontinued after 24-hours of therapy. On the day of discharge, Mrs. Villegas reported feeling well. She denies any headaches, RUQ pain, visual changes, or SOB. Her pain was well controlled; she was ambulating; voiding spontaneously; and tolerating a regular diet; and was passing flatus. Vitals - VSS, afebrile, normal to mildly elevated BPs, non tachycardic General - sitting up in bed, AAOX3, pleasant and conversant, NAD Abdomen - Fundus firm at U-1. No fundal tenderness. Steri strips in place. Incision clean/dry/intact. Minimal tenderness to palpation. Extremities - 1+ edema A/P: Ms. Villegas is a 31yo POD#3 s/p an uncomplicated RLTCD + BTL at 35wks for pre-eclampsia with severe features and is now s/p 24-hours of magnesium for seizure prophylaxis and meeting all discharge criteria. - Will discharge to home this morning. - Nifedipine and Labetalol for BP control. - Ibuprofen, Tylenol, and Oxycodone for post-operative pain control - Blood Pressure Checks at 1-day & 7-days after discharge - Incision check in two-weeks - Routine check in six-weeks - All questions answered TAMMIE GAN M.D. Mar 09, 2021 06:39
[2021-03-09] MEDS: PRENATAL VITAMINS CHEWABLE TABLET PO SCH (09:39)
[2021-03-09 09:40] VITALS: BP 140/78
[2021-03-09] MEDS: LABETALOL 100MG TAB PO SCH (09:40)
[2021-03-09] MEDS: NIFEdipine 30 MG XL TAB PO SCH (09:41)
[2021-03-09 09:57] VITALS: BP 140/68
== END 2021-03-09 11:50 | disposition home or self-care (01) | DRG 785 ==
LOC: M LDO 09:19 → M LDI 10:37 → M OBS 03-07 15:15
PROVIDERS: ADMIT Obstetrics & Gynecology; ATTEND Obstetrics & Gynecology
PROC: 0UB70ZZ Excision of Bilateral Fallopian Tubes, Open Approach (ICD-10-PCS; 2021-03-06)
PROC: 10D00Z1 Extraction of Products of Conception, Low, Open Approach (ICD-10-PCS; principal; 2021-03-06 12:00)
DX: O14.14 Severe pre-eclampsia complicating childbirth (principal); O34.211 Maternal care for low transverse scar from previous cesarean delivery; O24.013 Pre-existing type 1 diabetes mellitus, in pregnancy, third trimester; Z3A.35 35 weeks gestation of pregnancy; O99.284 Endocrine, nutritional and metabolic diseases complicating childbirth; E55.9 Vitamin D deficiency, unspecified; Z79.4 Long term (current) use of insulin; Z37.0 Single live birth; Z30.2 Encounter for sterilization